=== PATIENT | male | born 1965 | race Caucasian/White ===

== ENCOUNTER 2025-04-28 07:46 | Day surgery (SDC) | payer OTHER ==
[~2025-04-28] VITALS: Ht 170.2 cm; Wt 90.9 kg
[~2025-04-28 07:46] MED LIST: ASPI-1450 PO; ATOR40TA71 PO; LISI20TA24 PO; METF-81 PO; [UNRECOGNIZED DRUG - CODE] PO
[2025-04-28] MEDS ORDERED: RINGERS SOLUTION,LACTATED 1,000 ML IV ONE (08:37)
[2025-04-28] MEDS: ETHYL ALCOHOL 62% ANTISEPTIC NASAL SANITIZER 0.6 ML AMPUL NASAL ONE (08:49)
[2025-04-28] MEDS: CHLORHEXIDINE GLUCONATE 2% TOWELETTE [2'S/6'S] TP ONE (08:50)
[2025-04-28] MEDS: RINGERS SOLUTION,LACTATED 1,000 ML IV ONE (08:51)
[2025-04-28 09:01] LABS: PLATELET COUNT (AUTO) 187 K/uL (150-450); RED BLOOD CELL COUNT(AUTO) 5.05 MIL/uL (4.50-5.90); RED CELL DISTRIBUTION WIDTH 14.5 % (11.5-14.5); WHITE BLOOD COUNT (AUTO) 5.1 K/uL (4.5-11.0)
[2025-04-28 09:07] LABS: CALCIUM, TOTAL 9.2 mg/dL (8.8-10.5); CREATININE 0.78 mg/dL (0.60-1.30); GLOMERULAR FILTR. RATE CALC > 60 mL/min (>60); GLUCOSE,RANDOM 148 mg/dL (70-110); SODIUM SERUM 138 mmol/L (136-145); UREA NITROGEN, BLOOD 13 mg/dL (7-18)
[2025-04-28 09:12] LABS: ASPARTATE AMINOTRANSFERASE 81 U/L (15-37); TOTAL PROTEIN, SERUM 7.2 g/dL (6.4-8.2)
[2025-04-28] MEDS: BUPIVACAINE LIPOSOME/PF 1.3%-13.3MG/ML SUSP 20 ML VIAL INJ ONE (10:27)
[2025-04-28] MEDS: BUPIVACAINE HCL/PF 0.25% 30 ML VIAL ONE (10:27)
[2025-04-28] MEDS ORDERED: OxyCODONE HCL/ACETAMINOPHEN 5-325 MG TABLET ONE (11:31)
[2025-04-28] MEDS: OxyCODONE HCL/ACETAMINOPHEN 5-325 MG TABLET PO ONE (12:06)
[2025-04-28] MEDS ORDERED: ROCURONIUM BROMIDE 10 MG/ML 5 ML VIAL ONE (16:33)
[2025-04-28] MEDS ORDERED: PROPOFOL 1% 20 ML VIAL IVP ONE (16:33)
[2025-04-28] MEDS ORDERED: METOCLOPRAMIDE HCL 5 MG/ML 2 ML VIAL ONE (16:33)
[2025-04-28] MEDS ORDERED: DEXAMETHASONE SOD PHOS 4 MG/ML VIAL ONE (16:33)
[2025-04-28] MEDS ORDERED: LIDOCAINE/PF 2% 5 ML VIAL ONE (16:33)
[2025-04-28] MEDS ORDERED: SUGAMMADEX SODIUM 200 MG/2 ML VIAL IVP ONE (16:33)
[2025-04-28] MEDS ORDERED: MIDAZOLAM HCL 2 MG/2 ML VIAL ONE (16:37)
[2025-04-28] MEDS ORDERED: FentaNYL CITRATE PF 100 MCG/2 ML VIAL ONE (16:37)
== END 2025-04-28 12:10 | disposition home or self-care (01) ==
LOC: SURGERY 07:46
PROVIDERS: ATTEND Specialist
DX: S83.231A Complex tear of medial meniscus, current injury, right knee, initial encounter (principal); M65.861 Other synovitis and tenosynovitis, right lower leg; M94.261 Chondromalacia, right knee; I10 Essential (primary) hypertension; E11.9 Type 2 diabetes mellitus without complications; X58.XXXA Exposure to other specified factors, initial encounter; Y93.89 Activity, other specified; Y92.89 Other specified places as the place of occurrence of the external cause; Y99.8 Other external cause status; Z79.01 Long term (current) use of anticoagulants; Z79.899 Other long term (current) drug therapy; Z79.82 Long term (current) use of aspirin
CPT/HCPCS: 29881; 93005; 80053; 85025; 85610; 85730; 36415; J0666; J3490 ×5; J2704; J1100; J3010; J2765; J2250; J7120